=== PATIENT | female | born 1945 | race Two or more races ===

== ENCOUNTER 2018-06-12 08:29 | Outpatient (CLI) | payer OTHER ==
[~2018-06-12 08:29] MED LIST: AMBIEN10 MG PO; ASA325 MG PO; BUDEO.25 IH; CARDIZEM CD 180 MG PO; CARDIZEM CD180 M1 PO; CARDIZEM CD180 MG PO; COZAAR100 MG PO; DESPEC-DM TABL1 EACH PO; FLOVENT 220MCG7.9 GM IH; HUMALOG100 U/ML SQ; IMDUR30 MG PO; Imdur 30MG PO; LEVIMIR INSULIN SUBCUTANEO; LIPITOR40 MG PO; LUMIGAN2.5 M1 OP; MEDROLPACK PO; NABUMETONE500 MG PO; NABUMETONE750 MG PO; Neurontin PO; OSTERA TABLET1 EACH PO; PERCOCET 5/3251 TAB PO; PLAVIX75 MG PO; Pulmicort 0.5 MG/2 ML AMPUL IH; SINGULAIR10 MG PO; SYMBICORT 16010.2 GM IH; SYNTHROID100 MCG PO; TIZANIDINE HCL2 MG PO; TRAMADOL HCL50 MG PO; ULTRAM50 MG PO; Vasotec 10MG TAB PO; XOPENEX0.63 MG/3 IH; Xopenex 0.63 MG/3 ML SOLUTION IH; ZANTAC150 M3 PO; ZITHROMAX500 MG PO
== END 2018-06-12 08:36 | disposition home or self-care (01) ==
LOC: LAB 08:29
DX: E11.65 Type 2 diabetes mellitus with hyperglycemia (principal); E03.8 Other specified hypothyroidism

== ENCOUNTER 2018-07-01 10:58 | Outpatient (CLI) | payer OTHER | END 2018-07-01 11:14 | disposition home or self-care (01) | LOC: MRI 10:58 | DX: M54.2 Cervicalgia (principal) | CPT/HCPCS: 72141; 72148 ==

== ENCOUNTER 2020-05-30 11:00 | Inpatient (IN) | payer OTHER ==
[~2020-05-30] VITALS: Ht 157.5 cm; Wt 71.7 kg
[2020-05-30] MEDS ORDERED: SYNTHROID100 MCG PO (13:44)
[2020-05-30] MEDS ORDERED: COZAAR100 MG PO (13:45)
[2020-05-30] MEDS ORDERED: SINGULAIR10 MG PO (13:45)
[2020-05-30] MEDS ORDERED: PROTONIX40 MG PO (13:45)
[2020-05-30] MEDS ORDERED: LIRICA PO (13:46)
[2020-05-30] MEDS ORDERED: CARDIZEM CD180 M1 PO (13:46)
[2020-05-30] MEDS ORDERED: ARICEPT10 MG PO (13:47)
[2020-05-30] MEDS ORDERED: CIMBALTA PO (13:48)
[2020-05-30] MEDS ORDERED: LIPITOR40 M1 PO (13:48)
[2020-05-30] MEDS ORDERED: AMBIEN10 MG PO (13:48)
[2020-05-30] MEDS ORDERED: HUMLOG (13:49)
[2020-05-30] MEDS ORDERED: LANTUS (13:50)
[2020-05-30] MEDS ORDERED: ALBUTERO (13:51)
[2020-05-30] MEDS ORDERED: LUMIGA (13:51)
[2020-05-30] MEDS ORDERED: MULTIPLE VITAM1 EACH PO (13:52)
[2020-05-30] MEDS ORDERED: SYMB (13:52)
[2020-06-06] MEDS ORDERED: PERCOCET 5-3251 EACH PO (10:36)
[2020-06-06] MEDS ORDERED: CLONAZEPAM0.5 MG PO (10:36)
[2020-06-06] MEDS ORDERED: COLACE100 MG PO (10:36)
[2020-06-07] MEDS ORDERED: ACETAMINOPHEN-1 EAC2 PO (13:38)
== END 2020-06-07 18:06 | disposition home or self-care (01) | DRG 473 ==
LOC: O/R 06-06 04:55 → SURH 06-06 10:15
PROVIDERS: ADMIT Orthopaedic Surgery Orthopaedic Surgery of the Spine; ATTEND Orthopaedic Surgery Orthopaedic Surgery of the Spine
PROC: 0RB30ZZ Excision of Cervical Vertebral Disc, Open Approach (ICD-10-PCS; 2020-06-06)
PROC: 3E0U0GB Introduction of Recombinant Bone Morphogenetic Protein into Joints, Open Approach (ICD-10-PCS; 2020-06-06)
PROC: 0RG10A0 Fusion of Cervical Vertebral Joint with Interbody Fusion Device, Anterior Approach, Anterior Column, Open Approach (ICD-10-PCS; principal; 2020-06-06 10:15)
DX: M50.01 Cervical disc disorder with myelopathy, high cervical region (principal); I10 Essential (primary) hypertension; E11.9 Type 2 diabetes mellitus without complications

== ENCOUNTER 2020-07-08 16:23 | Emergency (ER) | payer OTHER ==
[~2020-07-08] VITALS: Ht 157.5 cm; Wt 71.7 kg
[~2020-07-08 16:23] MED LIST changes: +ACETAMINOPHEN-1 EAC2 PO; +ALBUTERO; +ARICEPT10 MG PO; +CIMBALTA PO; +CLONAZEPAM0.5 MG PO; +COLACE100 MG PO; +HUMLOG; +LANTUS; +LIPITOR40 M1 PO; +LIRICA PO; +LUMIGA; +MULTIPLE VITAM1 EACH PO; +PERCOCET 5-3251 EACH PO; +PROTONIX40 MG PO; +SYMB
== END 2020-07-08 19:25 | disposition home or self-care (01) ==
LOC: ER 16:23
DX: M54.2 Cervicalgia (principal); M54.5 Low back pain; M62.830 Muscle spasm of back

== ENCOUNTER 2020-08-26 23:34 | Emergency (ER) | payer OTHER ==
[~2020-08-26] VITALS: Ht 157.5 cm; Wt 74.8 kg
== END 2020-08-27 14:04 | disposition home or self-care (01) ==
LOC: ER 23:34
DX: N39.0 Urinary tract infection, site not specified (principal); B96.89 Other specified bacterial agents as the cause of diseases classified elsewhere; R31.29 Other microscopic hematuria; Z03.818 Encounter for observation for suspected exposure to other biological agents ruled out; R11.2 Nausea with vomiting, unspecified; R10.13 Epigastric pain

== ENCOUNTER 2020-08-29 20:47 | Inpatient (IN) | payer OTHER ==
[~2020-08-29] VITALS: Ht 162.6 cm; Wt 68.0 kg
== END 2020-09-08 11:11 | disposition home or self-care (01) | DRG 690 ==
LOC: ER 20:47 → MEDJ 08-30 06:39 → SEC-K 08-30 06:39 → MEDJ 08-30 08:12
PROVIDERS: ADMIT Internal Medicine Cardiovascular Disease; ATTEND Internal Medicine Cardiovascular Disease
PROC: BW40ZZZ Ultrasonography of Abdomen (ICD-10-PCS; principal; 2020-08-30)
PROC: BW21YZZ Computerized Tomography (CT Scan) of Abdomen and Pelvis using Other Contrast (ICD-10-PCS; 2020-09-02)
DX: N39.0 Urinary tract infection, site not specified (principal); N17.8 Other acute kidney failure; E86.0 Dehydration; I10 Essential (primary) hypertension; E11.65 Type 2 diabetes mellitus with hyperglycemia; E03.8 Other specified hypothyroidism; Z79.4 Long term (current) use of insulin

== ENCOUNTER 2020-11-25 11:13 | Emergency (ER) | payer OTHER ==
[~2020-11-25] VITALS: Ht 154.9 cm; Wt 525.3 kg
== END 2020-11-25 21:33 | disposition home or self-care (01) ==
LOC: ER 11:13
DX: K29.70 Gastritis, unspecified, without bleeding (principal); R53.1 Weakness; R10.13 Epigastric pain; R06.02 Shortness of breath

== ENCOUNTER 2021-02-23 15:37 | Outpatient (CLI) | payer OTHER | END 2021-02-23 16:07 | disposition home or self-care (01) | LOC: RAD 15:37 | PROVIDERS: ATTEND Orthopaedic Surgery Orthopaedic Surgery of the Spine | DX: M54.5 Low back pain (principal); M53.82 Other specified dorsopathies, cervical region; Z98.1 Arthrodesis status ==

== ENCOUNTER → 2021-06-28 08:25 | Outpatient (CLI) | payer OTHER | END | disposition home or self-care (01) | LOC: LAB 08:25 | PROVIDERS: ATTEND Neuromusculoskeletal Medicine & OMM | DX: D64.89 Other specified anemias (principal); M50.222 Other cervical disc displacement at C5-C6 level; R41.3 Other amnesia ==

== ENCOUNTER 2025-02-15 18:46 | Emergency (ER) | payer OTHER ==
[~2025-02-15] VITALS: Ht 157.5 cm; Wt 71.7 kg
[2025-02-15] MEDS ORDERED: FARXIGA5 MG (19:21)
[2025-02-15] MEDS ORDERED: NAMENDA1 EACH (19:21)
[2025-02-15] MEDS ORDERED: METHYLPREDNISOLONE SOD SUCC 125 MG VIAL IV ONE (21:45)
[2025-02-15 21:53] LABS: BASO % 0.1 % (0.1-1.2); EOS # 0.00 (0.04-0.54); EOS % 0.0 % (0.7-7.0); LYMPH # 2.16 (1.18-3.74); LYMPH % 19.3 % (19.3-53.1); MEAN PLATELET VOLUME 12.00 fl (9.4-12.4); MONO # 0.68 (0.24-0.82); MONO % 6.1 % (4.7-12.5); NEUT # 8.31 (1.56-6.13); NEUT % 74.2 % (34.0-71.1); RED CELL DISTRIBUTION WIDTH 14.2 % (11.6-14.4)
[2025-02-15] MEDS ORDERED: BUDESONIDE 0.5 MG/2 ML AMPUL.NEB IH ONE (22:00)
[2025-02-15] MEDS ORDERED: IPRATROPIUM BROMIDE 0.5 MG/2.5 ML AMPUL.NEB IH SCH (22:00)
[2025-02-15] MEDS ORDERED: LEVALBUTEROL HCL 1.25 MG/3 ML SOLUTION IH SCH (22:00)
[2025-02-15 22:18] LABS: ALT/SGPT 39.0 U/L (12-78); AST/SGOT 25.0 U/L (15-37); BILIRUBIN TOTAL 0.4 mg/dL (0.3-1.2); BUN CREA RATIO 26.0 (7.0-25.0); CREATININE SERUM 1.52 mg/dL (0.55-1.02); GFR 32.74; GLOBULINA 4.6 G/DL (2.4-3.5); OSMOLALITY SERUM 296.0 MOSM/KG (275-295)
[2025-02-15 22:22] LABS: COVID-19 AG NEGATIVE (NEGATIVE); GLUCOSE FASTING 225.0 mg/dL (65-100)
[2025-02-15 23:49] LABS: ABG PH 7.352 (7.35-7.45); ABG PO2 79.5 mmHg (80-100); BICARBONATE 19.8 mmol/l (23-25)
[2025-02-15 23:53] LABS: o2 21 %
[2025-02-16] MEDS ORDERED: DEXAMETHASONE SODIUM PHOSPHATE 4 MG/ML VIAL IV STA (01:04)
[2025-02-16] MEDS ORDERED: HYDROCODONE/CHLORPHEN P-STIREX 5 ML ML PO STA (01:05)
== END 2025-02-16 03:53 | disposition home or self-care (01) ==
LOC: ER 18:46
PROVIDERS: Preventive Medicine Public Health & General Preventive Medicine
DX: J06.9 Acute upper respiratory infection, unspecified (principal); J45.909 Unspecified asthma, uncomplicated; Z20.822 Contact with and (suspected) exposure to COVID-19
CPT/HCPCS: 36415; 71250; 82803; 94640; 96365; 99284; J1100; J3490

== ENCOUNTER 2025-04-29 17:27 | Emergency (ER) | payer OTHER ==
[~2025-04-29] VITALS: Ht 152.4 cm; Wt 71.7 kg
[~2025-04-29 17:27] MED LIST changes: +FARXIGA5 MG; +NAMENDA1 EACH
[2025-04-29] MEDS ORDERED: 0.9 % SODIUM CHLORIDE 1,000 ML IV SCH (19:15)
[2025-04-29] MEDS ORDERED: PIPERACILLIN/TAZOBACTAM SODIUM 2.25 GM VIAL IV ONE (19:15)
[2025-04-29 19:55] LABS: BASO % 0.7 % (0.1-1.2); EOS # 0.15 (0.04-0.54); EOS % 1.8 % (0.7-7.0); LYMPH # 2.92 (1.18-3.74); LYMPH % 34.3 % (19.3-53.1); MEAN PLATELET VOLUME 11.10 fl (9.4-12.4); MONO # 0.83 (0.24-0.82); MONO % 9.8 % (4.7-12.5); NEUT # 4.54 (1.56-6.13); NEUT % 53.3 % (34.0-71.1); RED CELL DISTRIBUTION WIDTH 14.2 % (11.6-14.4)
[2025-04-29 20:37] LABS: ALT/SGPT 23 U/L (12-78); AST/SGOT 22 U/L (15-37); BILIRUBIN TOTAL 0.34 mg/dL (0.3-1.2); BUN CREA RATIO 21 (7.0-25.0); CREATININE SERUM 1.49 mg/dL (0.55-1.02); GFR 33.50; GLOBULINA 3.6 G/DL (2.4-3.5); GLUCOSE FASTING 111 mg/dL (65-100); OSMOLALITY SERUM 293 MOSM/KG (275-295)
[2025-04-29 21:09] LABS: ERYTHROCYTE SEDIMENTATION RATE 24 mm/hr (0-30)
[2025-04-29] MEDS ORDERED: DUI500 PO (21:37)
== END 2025-04-29 21:51 | disposition home or self-care (01) ==
LOC: ER 17:27
PROVIDERS: General Practice
DX: L97.509 Non-pressure chronic ulcer of other part of unspecified foot with unspecified severity (principal); E11.9 Type 2 diabetes mellitus without complications; Z79.4 Long term (current) use of insulin

== ENCOUNTER 2025-07-27 17:48 | Emergency (ER) | payer OTHER ==
[~2025-07-27] VITALS: Ht 152.4 cm; Wt 71.7 kg
[~2025-07-27 17:48] MED LIST changes: +DUI500 PO
[2025-07-27 19:14] VITALS: BP 151/54; O2SAT 98
[2025-07-27] MEDS ORDERED: FAMOTIDINE/PF 20 MG/2 ML VIAL IV STA (20:18)
[2025-07-27] MEDS ORDERED: METHYLPREDNISOLONE SOD SUCC 125 MG VIAL IV ONE (20:30)
[2025-07-27] MEDS ORDERED: 0.9 % SODIUM CHLORIDE 1,000 ML IV SCH (20:30)
[2025-07-27] MEDS ORDERED: IPRATROPIUM BROMIDE 0.5 MG/2.5 ML AMPUL.NEB IH SCH (20:30)
[2025-07-27] MEDS ORDERED: LEVALBUTEROL HCL 0.63 MG/3 ML SOLUTION IH SCH (20:30)
[2025-07-27] MEDS ORDERED: METHYLPREDNISOLONE SOD SUCC 40 MG VIAL ONE (20:45)
[2025-07-27] MEDS ORDERED: FAMOTIDINE/PF 20 MG/2 ML VIAL ONE (20:45)
[2025-07-27] MEDS ORDERED: LEVALBUTEROL HCL 0.63 MG/3 ML SOLUTION IH ONE (20:52)
[2025-07-27] MEDS ORDERED: IPRATROPIUM BROMIDE 0.5 MG/2.5 ML AMPUL.NEB IH ONE (20:52)
[2025-07-27 21:35] LABS: BASO % 0.5 % (0.1-1.2); EOS # 0.08 (0.04-0.54); EOS % 0.8 % (0.7-7.0); LYMPH # 2.52 (1.18-3.74); LYMPH % 25.8 % (19.3-53.1); MEAN PLATELET VOLUME 11.90 fl (9.4-12.4); MONO # 1.04 (0.24-0.82); MONO % 10.7 % (4.7-12.5); NEUT # 6.06 (1.56-6.13); NEUT % 62.1 % (34.0-71.1); RED CELL DISTRIBUTION WIDTH 13.4 % (11.6-14.4)
[2025-07-27 21:38] LABS: ERYTHROCYTE SEDIMENTATION RATE 14 mm/hr (0-30)
[2025-07-27 22:04] LABS: INR 1.02
[2025-07-27 22:07] LABS: ALT/SGPT 27 U/L (12-78); AST/SGOT 15 U/L (15-37); BILIRUBIN TOTAL 0.45 mg/dL (0.3-1.2); BUN CREA RATIO 22 (7.0-25.0); CREATININE SERUM 1.29 mg/dL (0.55-1.02); GFR 39.56; GLOBULINA 4.1 G/DL (2.4-3.5); GLUCOSE FASTING 172 mg/dL (65-100); OSMOLALITY SERUM 293 MOSM/KG (275-295)
[2025-07-27 22:48] LABS: COVID-19 AG NEGATIVE (NEGATIVE)
[2025-07-28] MEDS ORDERED: BUDESONIDE0.5 MG/2 M IH (00:06)
[2025-07-28] MEDS ORDERED: ALBUTEROL2.5 MG/3 M IH (00:06)
[2025-07-28] MEDS ORDERED: MUCINEX D ER 61 EACH PO (00:06)
[2025-07-28 00:20] LABS: URINE APPEARANCE Clear; URINE BILIRRUBIN Negative (NEGATIVE); URINE BLOOD Negative; URINE COLOR Yellow; URINE KETONE Negative (NEGATIVE); URINE LEUKOCYTE Negative; URINE NITRATE Negative; URINE PROTEIN Trace (NEGATIVE); URINE UROBILINOGEN 0.2 E.U./dl
[2025-07-28 00:25] LABS: URINE BACTERIA 29.7 uL (0.0-1933); URINE EPITHELIAL CELLS 11.0 uL (0.0-38.8); URINE WBC 16.0 uL (0.0-23.2)
[2025-07-28 00:28] LABS: URINE CAST 0.14 uL (0.0-1.40); URINE GLUCOSE >=1000 MG/DL (NEGATIVE); URINE RBC 0.9 uL (0.0-20.8)
== END 2025-07-28 02:05 | disposition home or self-care (01) ==
LOC: ER 17:48
PROVIDERS: Physician Assistant Medical
DX: J45.901 Unspecified asthma with (acute) exacerbation (principal); M94.0 Chondrocostal junction syndrome [Tietze]; N17.8 Other acute kidney failure; Z20.822 Contact with and (suspected) exposure to COVID-19; I10 Essential (primary) hypertension; E03.8 Other specified hypothyroidism; G47.39 Other sleep apnea; M19.90 Unspecified osteoarthritis, unspecified site; G62.9 Polyneuropathy, unspecified; E11.9 Type 2 diabetes mellitus without complications; Z79.4 Long term (current) use of insulin